=== PATIENT | male | born 1955 | race Caucasian/White ===

== ENCOUNTER → 2016-11-25 | Outpatient (CLI) | payer OTHER, BC ==
--- NOTE | 2016-11-25 22:47 | DI ---
XR FOREARM 2VW,11/25/2016 2:24 PM: Clinical History: Left arm injury. Previous Exam: None at this facility. Findings: AP and lateral views of the left forearm are obtained, and demonstrate anatomic alignment without fra ctures. The surrounding soft tissues are unremarkable. Impression: Normal left forearm.
== END ==
LOC: MOB RAD 14:25
PROVIDERS: ATTEND Physician Assistant
DX: S59.812A Other specified injuries left forearm, initial encounter (principal); W20.8XXA Other cause of strike by thrown, projected or falling object, initial encounter; Y93.H3 Activity, building and construction; Y92.69 Other specified industrial and construction area as the place of occurrence of the external cause; Y99.0 Civilian activity done for income or pay
CPT/HCPCS: 73090

== ENCOUNTER → 2017-03-02 | Outpatient (CLI) | payer BC ==
--- NOTE | 2017-03-02 12:35 | DI ---
HISTORY: Pain status post injury. FINDINGS: Examination reveals transverse fracture of the proximal aspect of the distal phalanx of th e ring finger. There is no displacement. There is a small avulsion of the medial aspect of the dist al tuft of the distal phalanx with no significant displacement. IMPRESSION: 1. Transverse fracture proximal aspect of the distal phalanx of the ring finger. 2. Small avulsion fracture medial aspect of the distsal tuft of the distal phalanx.
== END ==
LOC: MOB LAB 10:37
PROVIDERS: ATTEND Physician Assistant Medical
DX: S69.82XA Other specified injuries of left wrist, hand and finger(s), initial encounter (principal); S62.665A Nondisplaced fracture of distal phalanx of left ring finger, initial encounter for closed fracture; W23.0XXA Caught, crushed, jammed, or pinched between moving objects, initial encounter; Y93.59 Activity, other involving other sports and athletics played individually
CPT/HCPCS: 73140

== ENCOUNTER → 2017-05-11 | Outpatient (CLI) | payer BC | LOC: MOB LAB 14:03 | PROVIDERS: ATTEND Internal Medicine | DX: R39.11 Hesitancy of micturition (principal); Z12.5 Encounter for screening for malignant neoplasm of prostate | CPT/HCPCS: 36415; G0103 ==

== ENCOUNTER 2019-09-03 21:38 | Observation (INO) ==
[2019-09-03] MEDS ORDERED: IPRATROPIUM/ALBUTEROL SULFATE 3 ML NEB NEB ONE ×2 (21:56→21:57)
[2019-09-03] MEDS ORDERED: methylPREDNISolone 125 MG/2 ML VIAL IVP ONE (21:58)
[2019-09-03] MEDS ORDERED: ONDANSETRON 4 MG/2 ML VIAL IVP ONE (21:58)
[2019-09-03 22:07] LABS: BASOPHILS # (AUTO) 0.07 10*3/UL; BASOPHILS % (AUTO) 0.6 % (0-1); EOSINOPHILS # (AUTO) 0.77 10*3/UL; EOSINOPHILS % (AUTO) 6.1 % (0-8); Hematocrit [HCT] 48.4 % (42.0-52.0); Hemoglobin [HGB] 15.8 g/dL (14.0-18.0); LYMPHOCYTES # (AUTO) 2.32 10*3/uL; MEAN CORPUSCULAR HGB CONC 32.6 g/dL (33-37); MEAN CORPUSCULAR VOLUME 91.3 FL (80-90); MEAN PLATELET VOLUME 11.1 FL (7.4-12.2); MONOCYTES # (AUTO) 0.96 10*3/UL (0.3-0.8); MONOCYTES % (AUTO) 7.6 % (5-15); NEUTROPHILS # (AUTO) 8.44 10*3/UL; NEUTROPHILS % (AUTO) 67.1 % (50-80)
[2019-09-03 22:10] LABS: VENOUS PH 7.37 (7.32-7.42)
[2019-09-03 22:13] LABS: BLOOD UREA NITROGEN 19 mg/dL (7-22); BUN/CREATININE RATIO 21.11 (6-20); SERUM ALBUMIN 4.6 g/dL (3.5-4.8)
[2019-09-03 22:21] LABS: PLATELET MORPHOLOGY COMMENT NORMAL MORPHOLOGY (NORM); RBC MORPHOLOGY COMMENT NORMAL MORPHOLOGY (NORM); WBC MORPHOLOGY COMMENT NORMAL MORPHOLOGY (NORM)
[2019-09-03] MEDS ORDERED: cefTRIAXone Inj 1 GM in Sodium Chloride 0.9% 100 ML IV ONE (23:16)
[2019-09-03] MEDS ORDERED: LIDOCAINE W/ SODIUM BICARB 0.5 ML SYR SUBD PRN (23:57)
[2019-09-03] MEDS ORDERED: HYDRALAZINE 20 MG/1 ML IVP PRN (23:57)
[2019-09-03] MEDS ORDERED: ONDANSETRON 4 MG/2 ML VIAL IVP PRN (23:57)
[2019-09-04] MEDS: ALBUTEROL SULFATE 2.5 MG/3 ML NEB PRN (01:02)
[2019-09-04] MEDS: Montelukast Tab 10 MG TAB PO SCH ×2 (01:42→20:41)
[2019-09-04] MEDS: GUAIFENESIN/CODEINE SYRUP 100 MG/ 10 MG/ 5 ML UD CUP PO PRN (02:30)
[2019-09-04] MEDS: methylPREDNISolone 125 MG/2 ML VIAL IVP SCH ×4 (04:09→22:19)
[2019-09-04 04:58] LABS: BASOPHILS # (AUTO) 0.02 10*3/UL; BASOPHILS % (AUTO) 0.3 % (0-1); EOSINOPHILS # (AUTO) 0.02 10*3/UL; EOSINOPHILS % (AUTO) 0.3 % (0-8); Hematocrit [HCT] 42.7 % (42.0-52.0); Hemoglobin [HGB] 14.4 g/dL (14.0-18.0); LYMPHOCYTES # (AUTO) 0.55 10*3/uL; MEAN CORPUSCULAR HGB CONC 33.7 g/dL (33-37); MEAN CORPUSCULAR VOLUME 91.4 FL (80-90); MEAN PLATELET VOLUME 11.3 FL (7.4-12.2); MONOCYTES # (AUTO) 0.07 10*3/UL (0.3-0.8); NEUTROPHILS # (AUTO) 6.66 10*3/UL; NEUTROPHILS % (AUTO) 90.5 % (50-80); RED BLOOD COUNT 4.67 10^6/uL (4.70-6.10)
[2019-09-04 05:00] LABS: PLATELET MORPHOLOGY COMMENT NORMAL MORPHOLOGY (NORM); RBC MORPHOLOGY COMMENT NORMAL MORPHOLOGY (NORM); WBC MORPHOLOGY COMMENT NORMAL MORPHOLOGY (NORM)
[2019-09-04 05:08] LABS: BLOOD UREA NITROGEN 19 mg/dL (7-22); BUN/CREATININE RATIO 21.11 (6-20)
[2019-09-04] MEDS: IPRATROPIUM/ALBUTEROL SULFATE 3 ML NEB NEB SCH ×2 (07:02→11:23)
[2019-09-04] MEDS: BENZONATATE 200 MG CAPSULE PO SCH ×3 (08:00→20:41)
[2019-09-04] MEDS: AZITHROMYCIN 250 MG TABLET PO SCH (08:00)
[2019-09-04] MEDS ORDERED: Magnesium Sulfate 2gm (Premix) 2 GM/50 ML BAG IV ONE (09:50)
[2019-09-04] MEDS ORDERED: POTASSIUM CHLORIDE 20 MEQ TAB PO ONE (09:50)
[2019-09-04] MEDS ORDERED: PANTOPRAZOLE IV 40 MG VIAL IVP ONE (10:29)
[2019-09-04] MEDS ORDERED: BUDESONIDE 0.5 MG/2 ML NEB ONE (11:26)
[2019-09-04] MEDS: IPRATROPIUM BROMIDE 0.5 mg/2.5 ML NEB SCH ×2 (13:23→19:21)
[2019-09-04] MEDS: LEVALBUTEROL HCL 1.25 MG/3 ML NEB SCH ×2 (13:23→19:24)
[2019-09-04] MEDS: BUDESONIDE 0.5 MG/2 ML NEB SCH (19:22)
[2019-09-05] MEDS: IPRATROPIUM BROMIDE 0.5 mg/2.5 ML NEB SCH ×2 (01:44→06:18)
[2019-09-05] MEDS: LEVALBUTEROL HCL 1.25 MG/3 ML NEB SCH ×2 (01:45→06:20)
[2019-09-05] MEDS: GUAIFENESIN/CODEINE SYRUP 100 MG/ 10 MG/ 5 ML UD CUP PO PRN (02:22)
[2019-09-05] MEDS: methylPREDNISolone 125 MG/2 ML VIAL IVP SCH ×4 (03:50→16:35)
[2019-09-05] MEDS: BUDESONIDE 0.5 MG/2 ML NEB SCH ×2 (06:19→19:07)
[2019-09-05] MEDS: ALBUTEROL SULFATE 2.5 MG/3 ML NEB PRN (07:50)
[2019-09-05] MEDS: AZITHROMYCIN 250 MG TABLET PO SCH (09:19)
[2019-09-05] MEDS: PANTOPRAZOLE IV 40 MG VIAL IVP SCH (09:20)
[2019-09-05] MEDS: BENZONATATE 200 MG CAPSULE PO SCH ×3 (09:20→21:01)
[2019-09-05] MEDS: IPRATROPIUM/ALBUTEROL SULFATE 3 ML NEB NEB SCH ×3 (12:59→23:57)
[2019-09-05] MEDS: Montelukast Tab 10 MG TAB PO SCH (21:03)
[2019-09-06] MEDS: methylPREDNISolone 125 MG/2 ML VIAL IVP SCH ×2 (00:54→06:49)
[2019-09-06] MEDS: GUAIFENESIN/CODEINE SYRUP 100 MG/ 10 MG/ 5 ML UD CUP PO PRN (03:59)
[2019-09-06 04:54] LABS: BLOOD UREA NITROGEN 24 mg/dL (7-22)
[2019-09-06] MEDS: IPRATROPIUM/ALBUTEROL SULFATE 3 ML NEB NEB SCH ×2 (06:52→06:53)
[2019-09-06] MEDS: BUDESONIDE 0.5 MG/2 ML NEB SCH (06:54)
[2019-09-06 06:55] VITALS: RESP 20
[2019-09-06] MEDS: LEVALBUTEROL HCL 1.25 MG/3 ML NEB SCH (07:14)
[2019-09-06] MEDS: PANTOPRAZOLE IV 40 MG VIAL IVP SCH (08:48)
[2019-09-06] MEDS: BENZONATATE 200 MG CAPSULE PO SCH (08:48)
[2019-09-06] MEDS: AZITHROMYCIN 250 MG TABLET PO SCH (08:49)
[2019-09-06 11:06] VITALS: BP 119/52; TEMP 97.2; O2SAT 91
[2019-09-09 15:56] LABS: HISTOPLASMA MYCELIAL Negative (Negative)
[2019-09-10 06:52] LABS: HISTOPLASMA IMMUNODIFFUSION Negative (Negative)
== END 2019-09-06 13:00 | disposition home or self-care (01) ==
LOC: MED/SURG 21:38 → ER 21:38 → MED/SURG 23:58
PROVIDERS: ADMIT Family Medicine; ATTEND Family Medicine

== ENCOUNTER 2019-10-06 10:04 | Observation (INO) ==
[2019-10-06] MEDS ORDERED: IPRATROPIUM/ALBUTEROL SULFATE 3 ML NEB NEB ONE (10:08)
[2019-10-06] MEDS ORDERED: methylPREDNISolone 125 MG/2 ML VIAL IVP ONE (10:11)
[2019-10-06 10:29] LABS: VENOUS PH 7.43 (7.32-7.42)
[2019-10-06 10:41] LABS: Hematocrit [HCT] 47.7 % (42.0-52.0); MEAN CORPUSCULAR HGB CONC 33.6 g/dL (33-37); MEAN CORPUSCULAR VOLUME 94 FL (80-90); RED BLOOD COUNT 5.07 10^6/uL (4.70-6.10)
[2019-10-06 10:42] LABS: BASOPHILS # (AUTO) 0.04 10*3/UL; BASOPHILS % (AUTO) 6 % (0-1); EOSINOPHILS # (AUTO) 0.54 10*3/UL; EOSINOPHILS % (AUTO) 7.5 % (0-8); LYMPHOCYTES # (AUTO) 1.92 10*3/uL; MEAN PLATELET VOLUME 8.9 FL (7.4-12.2); MONOCYTES # (AUTO) 0.61 10*3/UL (0.3-0.8); MONOCYTES % (AUTO) 8.4 % (5-15); NEUTROPHILS # (AUTO) 4.12 10*3/UL; NEUTROPHILS % (AUTO) 56.9 % (50-80)
[2019-10-06 10:43] LABS: PLATELET MORPHOLOGY COMMENT NORMAL MORPHOLOGY (NORM); RBC MORPHOLOGY COMMENT NORMAL MORPHOLOGY (NORM); WBC MORPHOLOGY COMMENT NORMAL MORPHOLOGY (NORM)
[2019-10-06 10:52] LABS: BLOOD UREA NITROGEN 12 mg/dL (7-22); SERUM ALBUMIN 4.8 g/dL (3.5-4.8)
[2019-10-06] MEDS ORDERED: ALBUTEROL SULFATE 2.5 MG/3 ML NEB ONE (11:30)
[2019-10-06] MEDS ORDERED: Apixaban 5 MG TABLET PO ONE (12:50)
[2019-10-06] MEDS ORDERED: DOCUSATE 100 MG CAPSULE PO PRN (14:10)
[2019-10-06] MEDS ORDERED: ONDANSETRON 4 MG/2 ML VIAL IVP PRN (14:10)
[2019-10-06] MEDS ORDERED: CALCIUM CARBONATE 500 MG (TUMS) CHEWABLE TABLET PO PRN (14:10)
[2019-10-06] MEDS ORDERED: ACETAMINOPHEN 325 MG TABLET PO PRN (14:10)
[2019-10-06] MEDS ORDERED: LIDOCAINE W/ SODIUM BICARB 0.5 ML SYR SUBD PRN (14:10)
[2019-10-06] MEDS ORDERED: FLUTICASONE HFA 110 MCG - 12 GM INHALER INH ONE (14:10)
[2019-10-06] MEDS ORDERED: ALBUTEROL SULFATE 2.5 MG/3 ML NEB PRN (14:10)
[2019-10-06] MEDS ORDERED: IPRATROPIUM/ALBUTEROL SULFATE 3 ML NEB NEB SCH (14:10)
[2019-10-06] MEDS: methylPREDNISolone 125 MG/2 ML VIAL IVP SCH ×2 (16:52→22:34)
[2019-10-06] MEDS: ALBUTEROL SULFATE 2.5 MG/3 ML NEB PRN (16:55)
[2019-10-06] MEDS ORDERED: FLUTICASONE HFA 110 MCG - 12 GM INHALER INH SCH (19:00)
[2019-10-06] MEDS: IPRATROPIUM/ALBUTEROL SULFATE 3 ML NEB NEB SCH (19:37)
[2019-10-06] MEDS: BUDESONIDE 0.5 MG/2 ML NEB SCH (19:39)
[2019-10-06] MEDS ORDERED: Apixaban 5 MG TABLET PO SCH (21:00)
[2019-10-06] MEDS: Rivaroxaban Tab 10 MG TAB PO SCH (21:16)
[2019-10-06] MEDS: Montelukast Tab 10 MG TAB PO SCH (21:16)
[2019-10-07] MEDS: IPRATROPIUM/ALBUTEROL SULFATE 3 ML NEB NEB SCH ×4 (00:50→19:08)
[2019-10-07] MEDS: methylPREDNISolone 125 MG/2 ML VIAL IVP SCH ×4 (04:56→22:10)
[2019-10-07] MEDS: ALBUTEROL SULFATE 2.5 MG/3 ML NEB PRN (04:58)
[2019-10-07] MEDS: BUDESONIDE 0.5 MG/2 ML NEB SCH ×2 (06:38→19:10)
[2019-10-07] MEDS: Rivaroxaban Tab 10 MG TAB PO SCH ×2 (09:58→22:10)
[2019-10-07] MEDS: PANTOPRAZOLE 40 MG TABLET PO SCH (09:58)
[2019-10-07] MEDS: Prometh/Codeine Liquid 10/6.25 MG/5 ML ORAL.SYRIN PO PRN ×2 (15:49→22:10)
[2019-10-07] MEDS ORDERED: FLUTICASONE PROPIONATE 16 GRAM (120 SPRAYS / BOTTLE) ENOS ONE (16:36)
[2019-10-07] MEDS: Montelukast Tab 10 MG TAB PO SCH (22:11)
[2019-10-08] MEDS: IPRATROPIUM/ALBUTEROL SULFATE 3 ML NEB NEB SCH ×3 (01:29→12:58)
[2019-10-08] MEDS: methylPREDNISolone 125 MG/2 ML VIAL IVP SCH ×2 (05:20→11:13)
[2019-10-08] MEDS: BUDESONIDE 0.5 MG/2 ML NEB SCH (06:56)
[2019-10-08 06:58] VITALS: RESP 20
[2019-10-08] MEDS: Rivaroxaban Tab 10 MG TAB PO SCH (08:59)
[2019-10-08] MEDS: PANTOPRAZOLE 40 MG TABLET PO SCH (08:59)
[2019-10-08] MEDS: Prometh/Codeine Liquid 10/6.25 MG/5 ML ORAL.SYRIN PO PRN (09:03)
[2019-10-08 09:09] VITALS: BP 134/66; TEMP 98.3
[2019-10-08 12:59] VITALS: O2SAT 92
[2019-10-08] MEDS ORDERED: Rivaroxaban Tab 10 MG TAB PO ONE (13:07)
[2019-10-11 08:55] LABS: DRVVT SCREEN RATIO 1.33; THROMBIN TIME 18.2
[2019-10-11 08:56] LABS: PROTEIN C ACTIVITY 105; PROTEIN S ANTIGEN 83
[2019-10-11 09:00] LABS: SOLUBLE FIBRIN MONOMER 5
== END 2019-10-08 14:06 | disposition home or self-care (01) ==
LOC: MED/SURG 10:04 → ER 10:04 → MED/SURG 14:05
PROVIDERS: ADMIT Family Medicine; ATTEND Family Medicine